=== PATIENT | female | born 2000 | race Caucasian/White ===

== ENCOUNTER 2024-09-25 15:06 | Emergency (ER) | payer MEDICAID, SELFPAY ==
[2024-09-25 15:10] VITALS: BP 122/82; PULSE 83; RESP 14; TEMP 36.7; O2SAT 98; BMI 34.3
--- NOTE | 2024-09-25 15:14 | XR_ITS ---
WS: [id number] Exam: XR foot RT min 3V* [id number] Date/Time of Exam: 09/25/2024 3:16 PM Reason For Exam: big toe pain No acute fracture. The joints are preserved. No soft tissue foreign bodies are identified. XR/XR foot RT min 3V* [id number] IMPRESSION: 1. Negative RIGHT foot.
--- NOTE | 2024-09-25 15:40 | W.ED.EXTPRO ---
HPI - Extremity Problem General: Chief complaint: Extremity Problem,Nontraumatic Stated complaint: right foot big toe pain Time Seen by Provider: 09/25/24 15:15 Source: patient Mode of arrival: ambulatory Limitations: no limitations History of Present Illness: 23-year-old female who has an ingrown toenail to the right great toe states has been there for few weeks she had had some erythema states she had actually drained some pus out of it but is continue to have a severe pain states it hurts to walk on it has no other complaints this time Associated symptoms: Deny chest pain, fever(s) or rash Related Data Previous Rx's ?Medication ?Instructions ?Recorded hydrocodone 5 mg-acetaminophen 325 1 tab PO Q6H PRN pain #14 tabs 09/25/24 mg tablet sulfamethoxazole 800 1 tab PO BID 10 days #20 tabs 09/25/24 mg-trimethoprim 160 mg tablet (Bactrim DS) Allergies Allergy/AdvReac Type Severity Reaction Status Date / Time No Known Allergies Allergy Verified 09/25/24 15:15 Review of Systems Const: Denies: fever(s), chills, body aches or change in appetite ENMT: Denies: throat pain or dental pain Card: Denies: chest pain Resp: Denies: dyspnea GI: Denies: abdominal pain, nausea, vomiting or diarrhea Musc: Reports: extremity pain; Denies: neck pain or back pain Skin/Breast: Denies: rash Neuro: Denies: headache(s) Physical Exam Const: COMMON NORMALS: no acute distress, patient oriented x3 and healthy appearing HENMT: COMMON NORMALS: normocephalic and atraumatic HEAD & SCALP: normocephalic and atraumatic Eye: COMMON NORMALS: conjunctivae normal CONJUNCTIVA: Yes conjunctivae normal Neck/C-Spine: COMMON NORMALS: full ROM and supple Chest: COMMONS NORMALS: normal inspection of the chest Resp: COMMON NORMALS: normal respiratory effort Cardio: COMMON NORMALS: regular rate RATE: regular rate Extremity: NARRATIVE EXTREMITY EXAM: Ingrown toenail noted to the medial aspect the left great toe Neuro: COMMON NORMALS: patient oriented x3, moves all extremities and no focal motor deficits Psych: COMMON NORMALS: mental status grossly normal, Normal thought process present and cooperative THOUGHT PROCESS: Normal thought process present Skin: COMMON NORMALS: no rashes or lesions noted and no wounds GENERAL SKIN EXAM: no rashes or lesions noted Procedures Nerve Block Nerve Block 1: Time out performed: Yes Local Anesthetic: bupivacaine 0.5% Amount of anesthesia used (mL): 8 Side: left Nerve Blocks: digital (great toe) Procedure Successful: Yes Patient Tolerated Procedure: well Complications: none Course Vital Signs: Vital signs: Vital Signs Temperature 98.0 F 09/25/24 15:10 Pulse Rate 83 09/25/24 15:10 Respiratory Rate 14 09/25/24 15:10 Blood Pressure 122/82 09/25/24 15:10 Pulse Oximetry 98 09/25/24 15:10 Oxygen Delivery Me thod Room Air 09/25/24 15:10 MDM - Extremity (Nontraumatic) Medical Decision Making Patient presents here with ingrown toenail left toe did remove the ingrown portion of the left toe nail without any complications we will place her on antibiotics along with pain meds All radiology interpretation(s) finalized by discharge Discharge Plan Discharge Patient Disposition: Home Clinical Impression: Ingrowing toenail Condition: Stable Prescriptions: New hydrocodone-acetaminophen 5-325 mg tablet 1 tab PO Q6H PRN (Reason: pain) Qty: 14 0RF sulfamethoxazole-trimethoprim [Bactrim DS] 800-160 mg tablet 1 tab PO BID 10 Days Qty: 20 0RF Discharge Orders: Discharge ED (Routine); Ordered 09/25/24 Ordered By: Mitra Ott Referrals: Kike Davila DPM [Physician] - 4-7 days Donald Camarillo MD [Primary Care Provider] - Discharge Diet: Advance as tolerated Discharge Activity: Resume usual activity Patient Instructions: Ingrown Nail (ED) Print Language: Scottish Coding Level of Care Code ED Manipulator Operator for Camilla Dasilva
== END 2024-09-25 15:59 | disposition home or self-care (01) ==
PROVIDERS: Emergency Provider Emergency Medicine; PCP Family Medicine
DX: L60.0 Ingrowing nail (principal)
CPT/HCPCS: 73630; 99283